=== PATIENT | female | born 1980 | race Caucasian/White ===

== ENCOUNTER → 2020-03-31 15:19 | Outpatient (BNVA) | payer MEDICAID, SELFPAY | PROVIDERS: Visit Provider Nurse Practitioner Family | DX: Z13.89 Encounter for screening for other disorder (principal) | CPT/HCPCS: 99202 ==

== ENCOUNTER → 2023-12-29 12:21 | Outpatient (BNVA) | payer SELFPAY | PROVIDERS: Visit Provider Physician Assistant Medical | DX: Z02.1 Encounter for pre-employment examination (principal); R76.11 Nonspecific reaction to tuberculin skin test without active tuberculosis ==